=== PATIENT | female | born 1955 | race Caucasian/White ===

== ENCOUNTER → 2016-12-26 | Outpatient (CLI) | payer OTHER ==
--- NOTE | 2016-12-27 09:01 | MM ---
Reason for exam: screening (asymptomatic). Last mammogram was performed 1 year and 1 month ago. History: Patient is postmenopausal. Family history of breast cancer in paternal aunt. Reductions of both breasts, March 2012. Taking estrogen for 9 years beginning at age 49. Physical Findings: A clinical breast exam by your physician is recommended on an annual basis and results should be correlated with mammographic findings. MG 3D Screening Mammo W/Cad Bilateral CC and MLO view(s) were taken. Prior study comparison: November 24, 2015, left breast MG 3d work up w/cad LT. November 22, 2015, bilateral MG 3d screening mammo w/cad. There are scattered fibroglandular densities. Focal asymmetry upper outer quadranr in the left breast. This finding is changed when compared with previous exams. ASSESSMENT: Incomplete: need additional imaging evaluation, BI-RAD 0 RECOMMENDATION: Special view mammogram of the left breast. If lesion persists on supplemental views, image directed ultrasound is recommended. [facility] will attempt to contact patient to return for supplemental views and ultrasound if indicated.
== END | disposition home or self-care (01) ==
LOC: RADMAMWWP 09:55
PROVIDERS: ATTEND Family Medicine
DX: Z12.31 Encounter for screening mammogram for malignant neoplasm of breast (principal); R92.2 Inconclusive mammogram
CPT/HCPCS: 77063; G0202

== ENCOUNTER → 2016-12-31 | Outpatient (CLI) | payer OTHER ==
--- NOTE | 2016-12-31 14:50 | MM ---
Reason for exam: additional evaluation requested from abnormal screening. Last mammogram was performed less than 1 month ago. History: Patient is postmenopausal. Family history of breast cancer in 2 paternal aunts and breast cancer in maternal aunt. Reductions of both breasts, March 2012. Taking estrogen for 9 years beginning at age 49. Physical Findings: Nurse did not find any significant physical abnormalities on exam. MG 3D Work Up W/Cad LT LM, spot compression CC, and spot compression MLO view(s) were taken of the left breast. Prior study comparison: December 26, 2016, bilateral MG 3d screening mammo w/cad. November 24, 2015, left breast MG 3d work up w/cad LT. November 22, 2015, bilateral MG 3d screening mammo w/cad. July 25, 2014, bilateral MG screening mammo w CAD. No distinct lesion persists. These results were verbally communicated with the patient and result sheet given to the patient on 12/31/16. ASSESSMENT: Benign, BI-RAD 2 RECOMMENDATION: Return to routine screening mammogram schedule for both breasts.
== END | disposition home or self-care (01) ==
LOC: RADMAMWWP 13:59
PROVIDERS: ATTEND Family Medicine
DX: R92.8 Other abnormal and inconclusive findings on diagnostic imaging of breast (principal)
CPT/HCPCS: G0206; G0279